=== PATIENT | male | born 1995 | race African-American/Black ===

== ENCOUNTER 2016-05-24 22:42 | Emergency (ER) | payer OTHER ==
[~2016-05-24 22:42] MED LIST: NYST1000 PO; PENI500T PO
[2016-05-24 22:52] VITALS: BP 133/65
[2016-05-24] MEDS ORDERED: CYCL10TA2 PO (23:12)
--- NOTE | 2016-05-24 23:13 | PHYS DOC ---
Past Medical History Past Medical History: Other Additional Past Medical Histor: RIGHT HAND FX, RIGHT FOOT FX Past Surgical History: Other Additional Past Surgical Histo: RIGHT HAND FX, RIGHT FOOT FX Alcohol Use: Occasionally Drug Use: Marijuana Adult General Chief Complaint Chief Complaint: HIP PAIN [facility] HPI Patient is a 20 year old male presents emergency department stating that he is having left lower back pain for the last 2 weeks. 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 He denies any numbness or tingling down to his lower feet. He denies taking any medications for pain and discomfort. Patient states he does have increased pain and discomfort when he is bending over to pick things up or when he is been sitting for a long time. He denies any trauma or injuries. Review of Systems Review of Systems Constitutional: Denies fever or chills [] Eyes: Denies change in visual acuity, redness, or eye pain [] HENT: Denies nasal congestion or sore throat [] Respiratory: Denies cough or shortness of breath [] Cardiovascular: No additional information not addressed in HPI [] GI: Denies abdominal pain, nausea, vomiting, bloody stools or diarrhea [] : Denies dysuria or hematuria [] Musculoskeletal: left lower back pain denies joint pain [] Integument: Denies rash or skin lesions [] Neurologic: Denies headache, focal weakness or sensory changes [] Allergies Allergies Allergies Coded Allergies Type Severity Reaction Last Updated Verified No Known Drug Allergies 03/25/16 No Physical Exam Physical Exam Constitutional: Well developed, well nourished, no acute distress, non-toxic appearance. [] HENT: Normocephalic, atraumatic, bilateral external ears normal, oropharynx moist, no oral exudates, nose normal. [] Eyes: PERRLA, EOMI, conjunctiva normal, no discharge. [] Neck: Normal range of motion, no tenderness, supple, no stridor. [] Cardiovascular:Heart rate regular rhythm Lungs & Thorax: no respiratory distress Skin: Warm, dry, no erythema, no rash. [] Back: Patient was noted to have left lower back tenderness. He had increased pain and discomfort when bending at the waist. He was able to do straight leg raises without difficulty. Extremities: No tenderness, no cyanosis, no clubbing, ROM intact, no edema. Peripheral pulses 2+ cap refill brisk less than 2 seconds. Neurologic: Alert and oriented X 3, normal motor function, normal sensory function, no focal deficits noted. [] Psychologic: Affect normal, judgement normal, mood normal. [] Current Patient Data Vital Signs Vital Signs Date Time Temp Pulse Resp B/P Pulse Ox O2 Delivery O2 Flow Rate FiO2 05/24/16 22:52 98.1 98 18 98 Room Air 98.1 EKG EKG [] Radiology/Procedures Radiology/Procedures [] Course & Med Decision Making Course & Med Decision Making Pertinent Labs and Imaging studies reviewed. (See chart for details) Patient was instructed on proper lifting. He was also instructed to use ibuprofen for pain and discomfort. He may take 800 mg every 8 hours with food stop taking few develop an upset stomach. Also recommended the patient to use Flexeril prior to going to bed as this will cause drowsiness spoke with him about not taking the medication when he needs to be alert and oriented. Ice packs on 20 minutes off 20 minutes several times a day. Patient will be discharged home in stable condition signs and symptoms to return back to the emergency department has been provided. Patient also wanted to be tested for cancer here in the emergency department he was provided with a doctor's list to follow-up for further evaluation of cancer possibilities. [] Dragon Disclaimer Dragon Disclaimer This electronic medical record was generated, in whole or in part, using a voice recognition dictation system. Departure Departure Impression: Primary Impression: Back pain Disposition: HOME, SELF-CARE Condition: STABLE Referrals: SUSAN PHELPS (PCP) Patient Instructions: Back Exercises, [id number], Back Injury Prevention, [id number], Back Pain, Adult, [id number] Additional Instructions: Activity as tolerated. Ibuprofen 800 mg every 8 hours with food. Stop taking few develop an upset stomach. Flexeril will cause drowsiness do not take any be alert and oriented. It is advisable you take this prior to going to bed. Drink plenty of fluids. Proper lifting is important to maintain back integrity. Follow-up with a primary care physician in 7-10 days. Return back to emergency percent symptoms of become worse. Scripts Cyclobenzaprine Hcl 10 Mg [id number] Mg PO TID #30 TAB Prov:ZULEIKA HOLT NP 05/24/16 ZULEIKA HOLT PRESSURE TESTER May 24, 2016 23:13
== END 2016-05-24 23:31 | disposition home or self-care (01) ==
LOC: ER 22:45
DX: M54.5 Low back pain (principal); F12.10 Cannabis abuse, uncomplicated
CPT/HCPCS: 99283

== ENCOUNTER 2016-07-22 23:32 | Emergency (ER) | payer OTHER ==
[~2016-07-22 23:32] MED LIST changes: +CYCL10TA2 PO
[2016-07-22 23:38] VITALS: BP 127/64
[2016-07-23] MEDS ORDERED: VALA1000 PO (00:42)
[2016-07-23] MEDS ORDERED: HYDR-971 PO (00:42)
--- NOTE | 2016-07-23 00:42 | PHYS DOC ---
Past Medical History Past Medical History: Other Additional Past Medical Histor: RIGHT HAND FX, RIGHT FOOT FX Past Surgical History: Other Additional Past Surgical Histo: RIGHT HAND FX, RIGHT FOOT FX Alcohol Use: Occasionally Drug Use: Marijuana Adult General Chief Complaint Chief Complaint: SEXUALLY TRANSMITTED DISEASE [facility] Patient is a 21 year old male presents emergency room with complaint of lesions to the right base of his penis that been present for the past 3-4 days. Patient also complains of "enlarged lymph nodes" in the suprapubic region that began approximately one week before that. Patient states that he has been having unprotected sex with his fiance that is known to have genital herpes. He states that this is his first such episode. He denies discharge, testicular pain or testicular swelling or dysuria. Review of Systems Review of Systems Constitutional: Denies fever or chills [] Eyes: Denies change in visual acuity, redness, or eye pain [] HENT: Denies nasal congestion or sore throat [] Respiratory: Denies cough or shortness of breath [] Cardiovascular: No additional information not addressed in [facility] [] GI: Denies abdominal pain, nausea, vomiting, bloody stools or diarrhea [] : Denies dysuria or hematuria [] Musculoskeletal: Denies back pain or joint pain [] Integument: Denies rash or skin lesions [] Neurologic: Denies headache, focal weakness or sensory changes [] Endocrine: Denies polyuria or polydipsia [] Allergies Allergies Allergies Coded Allergies Type Severity Reaction Last Updated Verified No Known Drug Allergies 03/25/16 No Physical Exam Physical Exam Constitutional: Well developed, well nourished, no acute distress, non-toxic appearance. [] HENT: Normocephalic, atraumatic, bilateral external ears normal, oropharynx moist, no oral exudates, nose normal. [] Eyes: PERRLA, EOMI, conjunctiva normal, no discharge. [] Neck: Normal range of motion, no tenderness, supple, no stridor. [] Cardiovascular:Heart rate regular rhythm, no murmur [] Lungs & Thorax: Bilateral breath sounds clear to auscultation [] Abdomen: Bowel sounds normal, soft, no tenderness, no masses, no pulsatile masses. [] Skin: Cluster vesicles to the right base of patient's penis. There is also suprapubic cervical lymphadenopathy without shoddy nodes. There is no penile discharge. Testicles are descended bilaterally and are nontender to palpation. Back: No tenderness, no CVA tenderness. [] Extremities: No tenderness, no cyanosis, no clubbing, ROM intact, no edema. [] Neurologic: Alert and oriented X 3, normal motor function, normal sensory function, no focal deficits noted. [] Psychologic: Affect normal, judgement normal, mood normal. [] Current Patient Data Vital Signs Vital Signs Date Time Temp Pulse Resp B/P Pulse Ox O2 Delivery O2 Flow Rate FiO2 07/22/16 23:38 97.9 77 18 100 Room Air 97.9 EKG EKG [] Radiology/Procedures Radiology/Procedures [] Course & Med Decision Making Course & Med Decision Making Pertinent Labs and Imaging studies reviewed. (See chart for details) [] Dragon Disclaimer Dragon Disclaimer This electronic medical record was generated, in whole or in part, using a voice recognition dictation system. Departure Departure Impression: Primary Impression: Genital herpes Disposition: HOME, SELF-CARE Condition: GOOD Referrals: SUSAN PHELPS (PCP) Patient Instructions: Genital Herpes Additional Instructions: 1. Review the discharge instructions provided to make yourself aware of your condition. 2. Take the medication as prescribed. 3. Follow-up with your primary care doctor within the next 7-10 days. As discussed, you will be contacted if the viral culture results are positive. Scripts Hydrocodone/Apap 5-325 ([place] 5-325 Tablet)1 Each Tablet1 Tab PO PRN Q6HRS PRN PAIN #10 TAB Ref 0 Prov:STEVAN PINEDA 07/23/16 Valacyclovir Hcl (Valacyclovir)1,000 Mg Tablet1 Tab PO TID #21 TAB Ref 2 Prov:STEVAN PINEDA 07/23/16 STEVAN PINEDA Jul 23, 2016 00:42
[2016-07-25 20:12] LABS: HERPES SIMPLEX TYPE 1 Negative (Negative); HERPES SIMPLEX TYPE 2 Positive (Negative)
== END 2016-07-23 00:53 | disposition home or self-care (01) ==
LOC: ER 23:32
DX: A60.01 Herpesviral infection of penis (principal); F12.10 Cannabis abuse, uncomplicated
CPT/HCPCS: 36415; 87529; 99283; 99284

== ENCOUNTER 2016-08-01 08:59 | Emergency (ER) | payer SELFPAY ==
[~2016-08-01] VITALS: Ht 170.2 cm; Wt 63.5 kg
[~2016-08-01 08:59] MED LIST changes: +HYDR-971 PO; +VALA1000 PO
--- NOTE | 2016-08-01 09:37 | PHYS DOC ---
Past Medical History Past Medical History: Other Additional Past Medical Histor: RIGHT HAND FX, RIGHT FOOT FX Past Surgical History: Other Additional Past Surgical Histo: RIGHT HAND FX, RIGHT FOOT FX Alcohol Use: Occasionally Drug Use: Marijuana Adult General Chief Complaint Chief Complaint: HEADACHE HPI HPI 21-year-old male who states he's otherwise healthy is having significant left- sided headache as well as some left-sided neck pain and swelling in the last 18 hours. He states he is nauseated. He states this all started around 5 PM yesterday and he had several alcoholic beverages as well despite his symptoms. He does not take any medications. He recently finished a course of acyclovir several weeks ago for genital herpes. He rates his pain a 7 out of 10. Patient is speaking in complete sentences and does not appear to be in any distress whatsoever. Review of Systems Review of Systems Constitutional: Denies fever or chills [] Eyes: Denies change in visual acuity, redness, or eye pain [] HENT: Denies nasal congestion, has sore throat [] Respiratory: Denies cough or shortness of breath [] Cardiovascular: No additional information not addressed in HPI [] GI: Denies abdominal pain, nausea, vomiting, bloody stools or diarrhea [] : Denies dysuria or hematuria [] Musculoskeletal: Denies back pain or joint pain [] Integument: Denies rash or skin lesions [] Neurologic: Has headache, denies focal weakness or sensory changes [] Endocrine: Denies polyuria or polydipsia [] Current Medications Current Medications Current Medications Medications (Trade) Dose Ordered Sig/Ana Start Time Stop Time Status Last Admin Dose Admin Dexamethasone Sodium Phosphate (Decadron) 10 mg 1X ONCE 08/01/16 10:30 08/01/16 10:31 DC Diphenhydramine HCl (Benadryl) 25 mg 1X ONCE 08/01/16 10:30 08/01/16 10:31 DC Ketorolac Tromethamine (Toradol) 30 mg 1X ONCE 08/01/16 10:30 08/01/16 10:31 DC Ondansetron HCl (Zofran) 4 mg 1X ONCE 08/01/16 09:45 08/01/16 09:46 DC 08/01/16 09:47 4 MG Sodium Chloride (Iv Sodium Chloride 0.9% 1000ml Bag) 1,000 ml @ 1,000 mls/hr 1X ONCE 08/01/16 09:45 08/01/16 10:44 DC 08/01/16 09:49 1,000 MLS/HR Allergies Allergies Allergies Coded Allergies Type Severity Reaction Last Updated Verified No Known Drug Allergies 08/01/16 No Physical Exam Physical Exam Constitutional: Well developed, well nourished, no acute distress, non-toxic appearance. [] HENT: Normocephalic, atraumatic, bilateral external ears normal, oropharynx injected, no oral exudates, nose normal. [] Eyes: PERRLA, EOMI, conjunctiva normal, no discharge. [] Neck: Normal range of motion, no tenderness, supple, no stridor, tender left sided cervical adenopathy. [] Cardiovascular:Heart rate regular rhythm, no murmur [] Lungs & Thorax: Bilateral breath sounds clear to auscultation [] Abdomen: Bowel sounds normal, soft, no tenderness, no masses, no pulsatile masses. [] Skin: Warm, dry, no erythema, no rash. [] Back: No tenderness, no CVA tenderness. [] Extremities: No tenderness, no cyanosis, no clubbing, ROM intact, no edema. [] Neurologic: Alert and oriented X 3, normal motor function, normal sensory function, no focal deficits noted. [] Psychologic: Affect normal, judgement normal, mood normal. [] Current Patient Data Vital Signs Vital Signs Date Time Temp Pulse Resp B/P Pulse Ox O2 Delivery O2 Flow Rate FiO2 08/01/16 09:49 80 18 124/59 99 Room Air 08/01/16 09:08 98.1 98.1 Lab Values Laboratory Tests Test 08/01/16 09:43 White Blood Count 14.5x10^3/uL (4.0-11.0) H Red Blood Count 5.07x10^6/uL (4.30-5.70) Hemoglobin 15.3g/dL (13.0-17.5) Hematocrit 44.7% (39.0-53.0) Mean Corpuscular Volume 88fL (79-100) Mean Corpuscular Hemoglobin 30pg (25-35) Mean Corpuscular Hemoglobin Concent 34g/dL (31-37) Red Cell Distribution Width 12.7% (11.5-14.5) Platelet Count 194x10^3/uL (140-400) Neutrophils (%) (Auto) 81% (31-73) H Lymphocytes (%) (Auto) 8% (24-48) L Monocytes (%) (Auto) 11% (0-9) H Eosinophils (%) (Auto) 0% (0-3) Basophils (%) (Auto) 0% (0-3) Neutrophils # (Auto) 11.8x10^3uL (1.8-7.7) H Lymphocytes # (Auto) 1.1x10^3/uL (1.0-4.8) Monocytes # (Auto) 1.6x10^3/uL (0.0-1.1) H Eosinophils # (Auto) 0.0x10^3/uL (0.0-0.7) Basophils # (Auto) 0.1x10^3/uL (0.0-0.2) Sodium Level 137mmol/L (136-145) Potassium Level 4.2mmol/L (3.5-5.1) Chloride Level 101mmol/L (98-107) Carbon Dioxide Level 26mmol/L (21-32) Anion Gap 10 (6-14) Blood Urea Nitrogen 18mg/dL (8-26) Creatinine 1.2mg/dL (0.7-1.3) Estimated GFR (Cockcroft-Gault) 93.4 Glucose Level 98mg/dL (70-99) Calcium Level 9.7mg/dL (8.5-10.1) Laboratory Tests 08/01/16 09:43 Laboratory Tests 08/01/16 09:43 EKG EKG [] Radiology/Procedures Radiology/Procedures CT of the head without contrast, 08/01/2016: History: Headache The ventricles are within normal limits in size. There is no shift of the midline structures. There is no evidence of acute intracranial hemorrhage or mass effect. IMPRESSION: The CT of the head without contrast reveals no significant abnormality. PQRS Compliance Statement: One or more of the following individualized dose reduction techniques were utilized for this examination: 1. Automated exposure control 2. Adjustment of the mA and/or kV according to patient size 3. Use of iterative reconstruction technique Course & Med Decision Making Course & Med Decision Making Pertinent Labs and Imaging studies reviewed. (See chart for details) This 21-year-old male with some mild left-sided headache and left-sided neck swelling will have laboratory workup including a head CT to rule out any acute cause to his symptoms. The patient is in no distress at this time and is currently nontoxic and afebrile in appearance. His oropharynx is injected and he does have some left-sided anterior lymphadenopathy which could be related to a cervical adenitis. Rapid strep will also be obtained. Laboratory workup shows a slightly elevated white count of 14.5 and no other acute findings. A CT of his head was unrevealing for any acute abnormality. Patient was given IV fluid bolus as well as dose of IV Decadron, IV Toradol and Zofran with improvement of his symptoms. I believe his symptoms are likely viral in etiology and could be related to a cervical adenitis with left-sided neck pain that is radiating somewhat into his left occipital region. For this, I 'll be prescribing him a course of steroids, Motrin, Zofran for nausea and amoxicillin. He will follow closely with his primary doctor for symptom resolution. Dragon Disclaimer Dragon Disclaimer This electronic medical record was generated, in whole or in part, using a voice recognition dictation system. Departure Departure Impression: Primary Impression: Lymph node enlargement Additional Impression: Cervical adenitis Disposition: 01 HOME, SELF-CARE Admitting Physician: Other Condition: STABLE Referrals: SUSAN PHELPS (PCP) Patient Instructions: Cervical Adenitis Additional Instructions: Please take your antibiotic as prescribed and continue to take motrin for your pain and inflammation. Remain well hydrated at home. Follow up closely with your primary care doctor in the next 2-3 days for your symptoms. Return to the ER if you develop any worsening of your headache or are unable to tolerate any fluids by mouth. Scripts Ibuprofen 800 Mg Expyhp379 Mg PO PRN Q6HRS PRN INFLAMMATION #20 TAB Prov:VIKKI BIRCH DO 08/01/16 Methylprednisolone (Medrol)4 Mg Tab.ds.pk1 Pkg PO UD #1 PKG Prov:VIKKI BIRCH DO 08/01/16 Amoxicillin 500 Mg [id number] Mg PO BID #20 CAP Ref 0 Prov:VIKKI BIRCH DO 08/01/16 Ondansetron Hcl (Zofran)4 Mg Tablet4 Mg PO BID PRN NAUSEA/VOMITING #10 TAB Prov:VIKKI BIRCH DO 08/01/16 Problem Qualifiers VIKKI BIRCH DO Aug 01, 2016 09:37
[2016-08-01] MEDS ORDERED: ONDANSETRON PF 4 MG/2 ML VIAL. IV ONE (09:45)
[2016-08-01] MEDS ORDERED: IV NORMAL SALINE 1000ML BAG 1,000 ML IV ONE (09:45)
[2016-08-01 09:59] LABS: BASO # 0.1 x10^3/uL (0.0-0.2); BASO % 0 % (0-3); EOS % 0 % (0-3); HEMATOCRIT 44.7 % (39.0-53.0); HEMOGLOBIN 15.3 g/dL (13.0-17.5); LYMPH # 1.1 x10^3/uL (1.0-4.8); LYMPH % 8 % (24-48); MEAN CORPUSCULAR HEMOGLOBIN 30 pg (25-35); MEAN CORPUSCULAR HGB CONC 34 g/dL (31-37); MEAN CORPUSCULAR VOLUME 88 fL (79-100); MONO % 11 % (0-9); NEUT % 81 % (31-73); PLATELET COUNT 194 x10^3/uL (140-400); RED BLOOD COUNT 5.07 x10^6/uL (4.30-5.70); RED CELL DISTRIBUTION WIDTH 12.7 % (11.5-14.5); WHITE BLOOD COUNT 14.5 x10^3/uL (4.0-11.0)
--- NOTE | 2016-08-01 10:12 | RAD ---
CT of the head without contrast, 08/01/2016: History: Headache The ventricles are within normal limits in size. There is no shift of the midline structures. There is no evidence of acute intracranial hemorrhage or mass effect. IMPRESSION: The CT of the head without contrast reveals no significant abnormality. PQRS Compliance Statement: One or more of the following individualized dose reduction techniques were utilized for this examination: 1. Automated exposure control 2. Adjustment of the mA and/or kV according to patient size 3. Use of iterative reconstruction technique
[2016-08-01] MEDS ORDERED: ONDA4TAB7 PO (10:21)
[2016-08-01] MEDS ORDERED: METH4TAB2 PO (10:21)
[2016-08-01] MEDS ORDERED: AMOX500C PO (10:21)
[2016-08-01] MEDS ORDERED: IBUP-1060 PO (10:22)
[2016-08-01] MEDS ORDERED: DIPHENHYDRAMINE 50 MG/ML VIAL. IVP ONE (10:30)
[2016-08-01] MEDS ORDERED: DEXAMETHASONE SOD PHOS 4 MG/ML VIAL IV ONE (10:30)
[2016-08-01] MEDS ORDERED: KETOROLAC TROMETHAMINE 30 MG/ML INJ. IV ONE (10:30)
[2016-08-01 10:32] LABS: CALCIUM 9.7 mg/dL (8.5-10.1); CREATININE 1.2 mg/dL (0.7-1.3); GFR 93.4; POTASSIUM 4.2 mmol/L (3.5-5.1)
[2016-08-01 10:52] VITALS: BP 118/63
[2016-08-01 12:21] LABS: NEGATIVE OBC STREP NEG; POSITIVE OBC STREP POS
== END 2016-08-01 11:05 | disposition home or self-care (01) ==
LOC: ER 08:59
DX: R59.9 Enlarged lymph nodes, unspecified (principal); I88.9 Nonspecific lymphadenitis, unspecified; R51 Headache; F12.10 Cannabis abuse, uncomplicated
CPT/HCPCS: 36415; 70450; 80048; 85027; 87070; 87880; 96361; 96374; 96375; 99285; J1100; J1200; J1885; J2405; J7030

== ENCOUNTER 2021-08-21 12:47 | Emergency (ER) | payer SELFPAY ==
[~2021-08-21] VITALS: Ht 172.7 cm; Wt 73.0 kg
[~2021-08-21 12:47] MED LIST changes: +AMOX500C PO; +CYCL10TA19 PO; -CYCL10TA2 PO; +HYDR-3164 PO; -HYDR-971 PO; +IBUP-1060 PO; +METH4TAB2 PO; -NYST1000 PO; +NYST100054 PO; +ONDA4TAB7 PO; -VALA1000 PO; +VALA10008 PO
[2021-08-21] MEDS ORDERED: FAMOTIDINE 20 MG/2 ML VIAL IVP ONE (14:00)
[2021-08-21] MEDS ORDERED: ONDANSETRON PF 4 MG/2 ML VIAL. IVP ONE (14:00)
[2021-08-21] MEDS ORDERED: MORPHINE SULFATE 4 MG/ML INJ. IVP ONE (14:00)
[2021-08-21] MEDS ORDERED: IV NORMAL SALINE 1000ML BAG 1,000 ML IV ONE (14:00)
[2021-08-21 14:16] LABS: BARBITURATES NEG (NEG); BENZODIAZEPINES NEG (NEG); CANNABINOIDS POS (NEG); COCAINE NEG (NEG); METHADONE NEG (NEG); OPIATES NEG (NEG); PHENCYCLIDINE NEG (NEG)
[2021-08-21 14:17] LABS: AMPHETAMINE/METHAMPHETAMINE POS (NEG)
[2021-08-21 14:22] LABS: BACTERIA,URINE 0 /HPF (0-FEW); RBC,URINE 0 /HPF (0-2); WBC,URINE 0 /HPF (0-4)
[2021-08-21 14:44] LABS: BASO % 0 % (0-3); EOS % 1 % (0-3); HEMATOCRIT 43.2 % (39.0-53.0); HEMOGLOBIN 14.8 g/dL (13.0-17.5); LYMPH % 16 % (24-48); MEAN CORPUSCULAR HEMOGLOBIN 31 pg (25-35); MEAN CORPUSCULAR HGB CONC 34 g/dL (31-37); MEAN CORPUSCULAR VOLUME 90 fL (79-100); MONO # 0.8 x10^3/uL (0.0-1.1); MONO % 13 % (0-9); NEUT # 4.4 x10^3/uL (1.8-7.7); NEUT % 71 % (31-73); PLATELET COUNT 268 x10^3/uL (140-400); RED BLOOD COUNT 4.78 x10^6/uL (4.30-5.70); RED CELL DISTRIBUTION WIDTH 13.1 % (11.5-14.5); WHITE BLOOD COUNT 6.3 x10^3/uL (4.0-11.0)
--- NOTE | 2021-08-21 14:54 | RAD ---
EXAMINATION: Chest radiograph. VIEWS: Single AP view of the chest COMPARISON: None INDICATION:26 years, Male, cough. FINDINGS: Normal cardiomediastinal silhouette. No focal consolidation. No pleural effusion or pneumothorax. No acute osseous process. IMPRESSION: No acute cardiopulmonary process. Electronically signed by: Bo Martínez DO (08/21/2021 2:52 PM) [facility]
[2021-08-21 14:59] LABS: CALCIUM 8.8 mg/dL (8.5-10.1); CREATININE 1.2 mg/dL (0.7-1.3); GFR 89.3
--- NOTE | 2021-08-21 15:00 | PHYS DOC ---
Past Medical History Past Medical History: HIV, Other Additional Past Medical Histor: RIGHT HAND FX, RIGHT FOOT FX Past Surgical History: Other Additional Past Surgical Histo: RIGHT HAND FX, RIGHT FOOT FX Smoking Status: Current Every Day Smoker Alcohol Use: Occasionally Drug Use: Marijuana General Adult EDM: Chief Complaint: ABDOMINAL PAIN HPI: HPI: Patient is a 26 year old male with history of HIV presented to the ED today complaining of 7 out of 10 lower abdominal pain, symptoms of been going on for 2 days. Also complaining of diarrhea with burping. Denies any hematemesis or melena. Denies any fever. He states he was supposed to have a biopsy of his stomach on 07/11/2021 but [place] was [place] the [place]. He is also reporting "fluid in his lungs". He states he was off his HIV medicines due to incarceration. Denies any fever. Denies any chest pain or shortness of breath. Denies anything specifically relieving or exacerbating his symptoms Review of Systems: Review of Systems: Constitutional: Denies fever or chills. [] Eyes: Denies change in visual acuity. [] HENT: Denies nasal congestion or sore throat. [] Respiratory: Reports fluid in his lungs denies cough or shortness of breath. [] Cardiovascular: Denies chest pain or edema. [] GI: Reports lower abdominal pain, burping, diarrhea, denies any hematemesis or melena : Denies dysuria. [] Musculoskeletal: Denies back pain or joint pain. [] Integument: Denies rash. [] Neurologic: Denies headache, focal weakness or sensory changes. [] Psychiatric: Denies depression or anxiety. [] Heart Score: C/O Chest Pain: N/A Risk Factors: Risk Factors: DM, Current or recent (<one month) smoker, HTN, HLP, family history of CAD, obesity. Risk Scores: Score 0 - 3: 2.5% MACE over next 6 weeks - Discharge Home Score 4 - 6: 20.3% MACE over next 6 weeks - Admit for Clinical Observation Score 7 - 10: 72.7% MACE over next 6 weeks - Early Invasive Strategies Current Medications: Current Medications Medications (Trade) Dose Ordered Sig/Ana Start Time Stop Time Status Last Admin Dose Admin Famotidine (Pepcid Vial) 20 mg 1X ONCE 08/21/21 14:00 08/21/21 14:01 DC 08/21/21 14:39 20 MG Morphine Sulfate (Morphine Sulfate) 4 mg 1X ONCE 08/21/21 14:00 08/21/21 14:01 DC 08/21/21 14:34 4 MG Ondansetron HCl (Zofran) 4 mg 1X ONCE 08/21/21 14:00 08/21/21 14:01 DC 08/21/21 14:32 4 MG Sodium Chloride 1,000 ml @ 1,000 mls/hr 1X ONCE 08/21/21 14:00 08/21/21 14:59 08/21/21 14:32 1,000 MLS/HR Allergies: Allergies: Allergies Coded Allergies Type Severity Reaction Last Updated Verified No Known Drug Allergies 08/01/16 No Physical Exam: PE: Constitutional: Well developed, well nourished, no acute distress, non-toxic appearance. [] HENT: Normocephalic, atraumatic, bilateral external ears normal, oropharynx moist, no oral exudates, nose normal. [] Eyes: PERRLA, EOMI, conjunctiva normal, no discharge. [] Neck: Normal range of motion, no tenderness, supple, no stridor. [] Cardiovascular:Heart rate regular rhythm, no murmur [] Lungs & Thorax: Bilateral breath sounds clear to auscultation [] Abdomen: Bowel sounds normal, soft, no tenderness, no masses, no pulsatile masses. [] Skin: Warm, dry, no erythema, no rash. [] Back: No tenderness, no CVA tenderness. [] Extremities: No tenderness, no cyanosis, no clubbing, ROM intact, no edema. [] Neurologic: Alert and oriented X 3, normal motor function, normal sensory function, no focal deficits noted. [] Psychologic: Affect normal, judgement normal, mood normal. [] Current Patient Data: Labs: Laboratory Tests Test 08/21/21 13:55 08/21/21 14:30 Urine Collection Type Unknown Urine Color (Auto) Yellow Urine Turbidity Clear Urine pH (Auto) 5.5 (<5.0-8.0) Urine Specific Belen 1.032 (1.000-1.030) Urine Protein (Auto) Negative mg/dL (Negative) Urine Glucose (Auto)(UA) Negative mg/dL (Negative) Urine Ketones (Auto) Negative mg/dL (Negative) Urine Blood (Auto) Negative (Negative) Urine Nitrite Negative (Negative) Urine Bilirubin (Auto) Negative (Negative) Urine Urobilinogen (Auto) Normal mg/dL (Normal) Urine Leukocyte Esterase (Auto) Negative (Negative) Urine RBC 0 /HPF (0-2) Urine WBC 0 /HPF (0-4) Urine Squamous Epithelial Cells Occ /LPF Urine Bacteria 0 /HPF (0-FEW) Urine Mucus Marked /LPF Urine Opiates Screen Neg (NEG) Urine Methadone Screen Neg (NEG) Urine Barbiturates Neg (NEG) Urine Phencyclidine Screen Neg (NEG) Urine Amphetamine/Methamphetamine Pos (NEG) Urine Benzodiazepines Screen Neg (NEG) Urine Cocaine Screen Neg (NEG) Urine Cannabinoids Screen Pos (NEG) Urine Ethyl Alcohol Neg (NEG) White Blood Count 6.3 x10^3/uL (4.0-11.0) Red Blood Count 4.78 x10^6/uL (4.30-5.70) Hemoglobin 14.8 g/dL (13.0-17.5) Hematocrit 43.2 % (39.0-53.0) Mean Corpuscular Volume 90 fL (79-100) Mean Corpuscular Hemoglobin 31 pg (25-35) Mean Corpuscular Hemoglobin Concent 34 g/dL (31-37) Red Cell Distribution Width 13.1 % (11.5-14.5) Platelet Count 268 x10^3/uL (140-400) Neutrophils (%) (Auto) 71 % (31-73) Lymphocytes (%) (Auto) 16 % (24-48) L Monocytes (%) (Auto) 13 % (0-9) H Eosinophils (%) (Auto) 1 % (0-3) Basophils (%) (Auto) 0 % (0-3) Neutrophils # (Auto) 4.4 x10^3/uL (1.8-7.7) Lymphocytes # (Auto) 1.0 x10^3/uL (1.0-4.8) Monocytes # (Auto) 0.8 x10^3/uL (0.0-1.1) Eosinophils # (Auto) 0.0 x10^3/uL (0.0-0.7) Basophils # (Auto) 0.0 x10^3/uL (0.0-0.2) Laboratory Tests 4/27/22 14:30 Vital Signs: Vital Signs Date Time Temp Pulse Resp B/P (MAP) Pulse Ox O2 Delivery O2 Flow Rate FiO2 08/21/21 14:34 0 99 Room Air 08/21/21 13:17 98.3 106/61 (76) 98.3 EKG: EKG: [] Radiology/Procedures: Radiology/Procedures: []PROCEDURE: PORTABLE CHEST 1V EXAMINATION: Chest radiograph. VIEWS: Single AP view of the chest COMPARISON: None INDICATION:26 years, Male, cough. FINDINGS: Normal cardiomediastinal silhouette. No focal consolidation. No pleural effusion or pneumothorax. No acute osseous process. IMPRESSION: No acute cardiopulmonary process. Electronically signed by: Wade Oneil DO (08/21/2021 2:52 PM) [facility] DICTATED and SIGNED BY: WADE ONEIL DO DATE: 08/21/21 1454 Course & Med Decision Making: Course & Med Decision Making Pertinent Labs and Imaging studies reviewed. (See chart for details) This is a 26-year-old male patient presented to the ED today with complaints of abdominal pain, diarrhea, burping symptoms for 2 days. Also complaining of fluid in his lungs. Chest x-ray is negative for any acute findings, CT of the abdomen and pelvis is negative for any acute findings, CBC, CMP, lipase, UA with no acute findings, UDS positive for methamphetamine and marijuana use. Patient states he follows up with a specialist at [facility] for his GI issues. Was discharged to home instructed follow-up in the course of this week. Provided return precautions. Lokesh Disclaimer: Lokesh Disclaimer: This electronic medical record was generated, in whole or in part, using a voice recognition dictation system. Departure Departure Impression: Primary Impression: Lower abdominal pain Additional Impressions: Methamphetamine use Marijuana use Diarrhea Qualified Codes: R19.7 - Diarrhea, unspecified Disposition: 01 HOME / SELF CARE / HOMELESS Condition: STABLE Referrals: NO PCP (PCP) Follow-up with your specialist at [facility] as soon as you can Patient Instructions: Abdominal Pain, Diarrhea, [id number], Methamphetamine Abuse, Complications Additional Instructions: Your lab work, CT of the abdomen and pelvis, chest x-ray are negative for any acute findings. Please follow-up with your doctor at [place]. Your drug screen was positive for methamphetamine use and marijuana use. MUTUNGA,CINDY M BAG PRESSER Aug 21, 2021 15:00
[2021-08-21 15:06] LABS: ALBUMIN 3.5 g/dL (3.4-5.0); ALBUMIN/GLOBULIN RATIO 0.8 (1.0-1.7); MAGNESIUM 2.3 mg/dL (1.8-2.4); TOTAL BILIRUBIN 0.3 mg/dL (0.2-1.0); TOTAL PROTEIN 8.1 g/dL (6.4-8.2)
[2021-08-21] MEDS ORDERED: IOHEXOL 300 MG/ML 100ML VIAL. IV ONE (15:15)
[2021-08-21] MEDS ORDERED: IOHEXOL 300 MG/ML 100ML VIAL. ONE (15:21)
[2021-08-21] MEDS ORDERED: CONTRAST GIVEN. MC PRN (15:30)
--- NOTE | 2021-08-21 15:31 | RAD ---
Axial CT of the abdomen and pelvis were obtained after the administration of 75 cc Omnipaque 300. Ora l contrast was also administered. Coronal and sagittal reformats are also available. Indication: Abdominal pain and diarrhea. Comparison: None. Findings: Heart is unenlarged. Lung bases are clear. Liver, spleen, adrenals, kidneys gallbladder and pancreas are unremarkable in appearance. Stomach, small and large bowel are nondistended. No evidence pathologic wall thickening. The appendix is visualized and full of air are nondistended with no significant inflammation. No significant sigm oid diverticular identified. No free air-fluid. Radiologically significant retroperitoneal or mesente roro lymphadenopathy. Abdominal aorta is nonaneurysmal. Portal, superior mesenteric and splenic veins are normal in appearance. Urinary bladder is nondistended. Bony structures are unremarkable in appear ance. IMPRESSION: Unremarkable CT examination abdomen pelvis. Exposure: One or more of the following individualized dose reduction techniques were utilized for thi s examination: 1. Automated exposure control 2. Adjustment of the mA and/or kV according to patient size 3. Use of iterative reconstruction technique Electronically signed by: Atul Valadez MD (08/21/2021 3:29 PM) [facility]
[2021-08-21 16:40] VITALS: BP 110/72
== END 2021-08-21 16:45 | disposition home or self-care (01) ==
LOC: ER 12:47
DX: R10.30 Lower abdominal pain, unspecified (principal); R19.7 Diarrhea, unspecified; F15.90 Other stimulant use, unspecified, uncomplicated; F12.90 Cannabis use, unspecified, uncomplicated; F17.200 Nicotine dependence, unspecified, uncomplicated
CPT/HCPCS: 36415; 71045; 74177; 80053; 80307; 81001; 83690; 83735; 85025; 96361; 96374; 96375; 99285; G0480; J2270; J2405; J3490; J7030; Q9967